=== PATIENT | female | born 1980 | race Caucasian/White ===

== ENCOUNTER 2019-07-22 10:12 | Emergency (ER) | payer BC ==
[~2019-07-22] VITALS: Ht 167.6 cm; Wt 61.4 kg
[2019-07-22] MEDS ORDERED: PREN29TA4 PO (10:42)
[2019-07-22] MEDS ORDERED: NS 1,000 ML IV ONE (11:00)
[2019-07-22 11:14] LABS: BASO % 0.3 % (0.0-1.0); EOS % 0.2 % (0.0-3.0); HEMATOCRIT 37.2 % (36.0-47.0); HEMOGLOBIN 12.5 g/dl (12.0-15.5); LYMPH # 1.4 10^3/uL (1.5-5.0); LYMPH % 12.1 % (24.0-44.0); MEAN CORPUSCULAR HEMOGLOBIN 30.1 pg (27.0-33.0); MEAN CORPUSCULAR HGB CONC 33.6 g/dl (32.0-36.5); MEAN CORPUSCULAR VOLUME 89.6 fl (80.0-96.0); MONO # 0.5 10^3/uL (0.0-0.8); MONO % 4.4 % (0.0-5.0); NEUTROPHILS # 9.5 10^3/uL (1.5-8.5); NEUTROPHILS % 82.6 % (36.0-66.0); PLATELET COUNT, AUTOMATED 194 10^3/uL (150-450); RED BLOOD COUNT 4.15 10^6/uL (4.00-5.40); WHITE BLOOD COUNT 11.5 10^3/uL (4.0-10.0)
[2019-07-22 12:48] VITALS: BP 146/87
--- NOTE | 2019-07-22 13:04 | REP ---
Obstetric sonography: History: labor. Active miscarriage. Findings: Transabdominal and translabial scanning demonstrates a living intrauterine fetus in a breech lie. motion was observed. heart rate is documented bradycardic at 54 beats per minute. Posterior placenta is seen without evidence of previa or abruption, grade 0. Amniotic fluid is subjectively normal. No extrauterine abnormalities observed. The lower extremities are observed within fluid in the lower uterine segment cervical region. Translabial scanning demonstrates effacement and dilation of the cervix and bulging membranes. The following anatomic structures are identified and felt to be unremarkable: cranium, cavum, cerebellum posterior fossa, left-sided stomach, and kidneys. Biometry chart: BPD 3.3 cm = 16 weeks 2 days Head circumference 12.3 cm = 16 weeks 1 day Abdominal circumference 10.4 cm = 16 weeks 3 days Femur length 2.4 cm = 17 weeks 1 day Humeral length 2.0 cm = 15 weeks 6 days HC/AC ratio normal 1.18. Cephalic index normal 0.72. Estimated weight 165 grams, 0 pounds 5 ounces, 56 percentile for 16 weeks 3 days. Impression: Living 16 week 2 day fetus by sonographic criteria, [place] by today's sonography January 04, 2020. Findings consistent with incompetent cervix with effacement and dilation of the cervix and bulging membranes. Significant bradycardia, heart rate 54 bpm. Electronically Signed by Daron Dyson MD 07/22/2019 02:22 P
== END 2019-07-22 13:00 | disposition short-term general hospital (02) ==
LOC: M ED 10:12 → EDBD 10:12 → M ED 13:00
DX: O03.4 Incomplete spontaneous abortion without complication (principal); Z3A.16 16 weeks gestation of pregnancy